=== PATIENT | male | born 1990 | race African-American/Black ===

== ENCOUNTER 2025-03-31 10:58 | Emergency (ER) | payer OTHER, SELFPAY ==
[2025-03-31 11:21] VITALS: BP 137/85; PULSE 84; RESP 16; TEMP 36.8; O2SAT 100
[2025-03-31 11:37] LABS: EDUAAPPEAR Clear; EDUABILI Negative (Negative); EDUABLOOD Trace (Negative); EDUACOLOR1 Yellow; EDUAGLUCOSE Negative (Negative); EDUAKETONE Negative (Negative); EDUALEUKO Negative (Negative); EDUANITRATE Negative (Negative); EDUAPROTEIN Negative (Negative); EDUASPGRAVITY 1.015; EDUAUROBILI 0.2
[2025-03-31] MEDS: cefTRIAXone 500 MG, LIDOCAINE 1% LOCAL INJ 1 ML IM (12:00)
--- NOTE | 2025-03-31 15:45 | ED_ITS ---
HPI - Male Genitourinary General Chief complaint: Urogenital-Male Stated complaint: DISCHARGE Time Seen by Provider: 03/31/25 11:25 Source: patient and RN notes reviewed Mode of arrival: ambulatory Limitations: no limitations History of Present Illness HPI Narrative: 35-year-old male presents Express Care complaining of discharge from his penis this morning. Patient stated that he noticed what he believes is ejaculation on the tip of his penis this morning. Patient said it was white and cloudy. Patient denies any maceration or intercourse this morning or last night. Patient has had unprotected sex recently but states only with his girlfriend. Patient states patent girlfriend get treated for STDs last night. Patient denies any concerns for STIs. Patient denies any painful ejaculation, green or yellow penile discharge, fevers, testicular or scrotal pain/swelling, or any rashes or suspicious lesions on his groin or genitals. Patient would like to be treated for STDs. Related Data Home Medications ?Medication ?Instructions ?Recorded ?Confirmed ?Last Taken ?Type No Home Medications 03/31/25 03/31/25 Unknown History Allergies Allergy/AdvReac Type Severity Reaction Status Date / Time tuberculin, purified protein Allergy Unknown Unknown Verified 03/31/25 11:44 deriva Review of Systems Review of Systems: CONSTITUTIONAL: Denies fever, chills, or sweats. EYES: Denies visual changes, redness, or discharge. ENT: Denies rhinorrhea, congestion, sore throat, or otalgia. CARDIOVASCULAR: Denies chest pain, palpitations, or edema. RESPIRATORY: Denies cough or dyspnea. GASTROINTESTINAL: Denies abdominal pain, nausea, vomiting, or diarrhea. GENITOURINARY: Denies dysuria, painful ejaculation, scrotal/testicular pain, scrotal/testicular swelling, or hematuria. Positive for penile discharge. SKIN: Denies rash or itching. MUSCULOSKELETAL: Denies back pain, joint pain, or myalgia. NEUROLOGIC: Denies headache, numbness, or weakness. PSYCHIATRIC: Denies anxiety or depression. All other systems reviewed are negative, except as documented in HPI. PMFSH Comments At the time of my signature, I reviewed and agree with the nursing past medical, surgical, social, and family history. There is no relevant family history pertinent to the patient complaint. Exam Narrative: GENERAL: This is a well-nourished, well-developed adult, in no apparent distress. They are non ill-appearing, nontoxic appearing. HEAD: normocephalic, atraumatic. EYES: Sclera clear/white. Conjunctiva normal. Vision is grossly intact. Extraocular movements intact EARS: External ears normal, Hearing grossly intact. NOSE: External nose normal THROAT: Mucous membranes moist, NECK: Neck supple, CARDIOVASCULAR: Regular rate and rhythm RESPIRATORY: Respiratory rate normal, respiratory effort nonlabored, no respiratory distress GENTIOURINARY: External penis is normal. No discharge expressed at the meatus when palpating the glans penis. No tenderness to palpation to the head of the penis. No suspicious lesions or rashes. Testicles and scrotum normal. SKIN: warm, Dry, intact with no suspicious lesions or rash, good texture and turgor. NEURO: awake, alert, and oriented to person, place and time. There were no obvious focal neurologic abnormalities. EXTREMITIES: No joint tenderness, effusion, or edema noted. Course Course Emergency Course: Portions of this record may have been created with voice recognition software Level of Care: Express Care Visit Vital Signs Vital signs: Vital Signs Temperature 98.3 F 03/31/25 11:21 Pulse Rate 84 03/31/25 11:21 Respiratory Rate 16 03/31/25 11:21 Blood Pressure 137/85 03/31/25 11:21 Pulse Oximetry 100 03/31/25 11:21 Temperature 98.3 F 03/31/25 11:21 Pulse Rate 84 03/31/25 11:21 Respiratory Rate 16 03/31/25 11:21 Blood Pressure 137/85 03/31/25 11:21 Pulse Oximetry 100 03/31/25 11:21 Reviewed MDM - Male Genitourinary MDM Narrative Medical decision making narrative: Unsure penile discharge his ejaculate or from infection. Patient states he is concerned that he has a STI but wants to go ahead and be treated for chlamydia, gonorrhea, Trichomonas her in case he has a STI since his girlfriend was treated last night. Urine dipstick negative for any evidence of infection, urine cu lture is pending. Chlamydia, gonorrhea, Trichomonas are pending, patient is not on the wait for results he wants to go ahead and start treatment. Patient given shot of Rocephin today. Prescription of doxycycline and Flagyl were sent to pharmacy. Discussed physical exam findings. Advised supportive measures and signs/symptoms to go to the ER. Pt is appropriate for outpt treatment and f/u. Differential Diagnosis Differential diagnosis: Likely urinary tract infection, urethritis and other (Chlamydia, gonorrhea, Trichomonas, STI) Lab Data Attestation: I reviewed the patient's lab results. Labs: Lab Results 03/31/25 Range/Units 11:33 POC Urine Color Yellow POC Urine Clarity Clear POC Urine pH 6.0 POC Ur Specif Taberg 1.015 POC Urine Protein Negative (Negative) POC Ur Glucose (UA) Negative (Negative) POC Urine Ketones Negative (Negative) POC Urine Blood Trace (Negative) POC Urine Nitrite Negative (Negative) POC Urine Bilirubin Negative (Negative) POC Urine Urobilinogen 0.2 POC U Leukocyte Esteras Negative (Negative) Critical Care Time Critical Care Time Critical Care Time: No Discharge Plan Discharge Clinical Impression: Potential exposure to STD, Discharge from penis Patient Disposition: Home Condition: Stable Instructions: Sexually Transmitted Diseases (ED), Safe Sex Practices (ED) Additional Instructions: Urine dipstick was negative for evidence of urinary tract infection. Urine culture will be sent off if anything grows or your urine culture will be contacted started on appropriate antibiotics. Your chlamydia, gonorrhea, Trichomonas or pending. You will be contacted with the results of your STD testing. If you would like further STD testing please contact her local health department. You have elected to start treatment today for STDs. Your given a shot of Rocephin today. Please take the doxycycline and metronidazole as directed. Please wear sunscreen if her going to be outside while taking doxycycline. Please do not drink alcohol while taking metronidazole as it may interact with alcohol causing severe nausea and vomiting. Please remain absent ear done with treatment. Follow-up PCP in 3-5 days. If you develop any testicular pain, swelling, fevers, abdominal pain, or any serious concerns please go to the ER immediately. Patient Language: Peruvian Prescriptions: New metronidazole 500 mg tablet 2,000 mg PO ONCE 1 Days Qty: 4 0RF doxycycline monohydrate 100 mg capsule 100 mg PO BID 7 Days Qty: 14 0RF No Action No Home Medications Follow-up/Referrals: PHYSICIAN,[facility] [employer] [Primary Care Provider] - Time of Disposition: 11:47
[2025-03-31 18:51] LABS: Trichomonas Vag PCR NOT DETECTED (NOT DETECTE)
[2025-03-31 19:16] LABS: Chlamydia trachomatis NOT DETECTED (NOT DETECTE); Neisseria gonorrhoeae PCR NOT DETECTED (NOT DETECTE)
== END 2025-03-31 12:25 | disposition home or self-care (01) ==
DX: R36.9 Urethral discharge, unspecified (principal); Z11.3 Encounter for screening for infections with a predominantly sexual mode of transmission
CPT/HCPCS: 81003; 87491; 87591; 87661; 99203; G0463; J0696; J2003